=== PATIENT | female | born 1990 | race Caucasian/White ===

== ENCOUNTER 2022-01-27 16:34 | Outpatient (CLI) | payer BC, SELFPAY | END 2022-01-27 16:35 | disposition home or self-care (01) | LOC: BICRAD 16:34 | PROVIDERS: ATTEND Internal Medicine Hematology & Oncology | DX: R50.9 Fever, unspecified (principal); R06.02 Shortness of breath; F41.1 Generalized anxiety disorder | CPT/HCPCS: 71046 ==

== ENCOUNTER 2022-02-17 10:55 | Day surgery (SDC) | payer BC ==
[2022-02-17] MEDS ORDERED: Loperamide HCl 2 MG CAP PO PRN (11:59)
[2022-02-17] MEDS ORDERED: Loperamide HCl 2 MG CAP PO SCH (12:00)
[2022-02-17] MEDS ORDERED: Acetaminophen 500 MG TAB ONE ×2 (12:12→13:02)
[2022-02-17] MEDS ORDERED: diphenhydrAMINE 25 MG CAP ONE (12:12)
[2022-02-17] MEDS ORDERED: Acetaminophen 500 MG TAB PO SCH ×2 (12:15→13:30)
[2022-02-17] MEDS ORDERED: diphenhydrAMINE 25 MG CAP PO SCH (12:15)
[2022-02-17] MEDS ORDERED: Acetaminophen 500 MG TAB PO PRN (13:17)
[2022-02-17] MEDS ORDERED: Ibuprofen 200 MG TAB PO PRN (14:04)
[2022-02-17 18:43] VITALS: BP 90/44; TEMP 97.5
== END 2022-02-17 18:20 | disposition short-term general hospital (02) ==
LOC: ONC/OP 10:55
PROVIDERS: ATTEND Internal Medicine Hematology & Oncology
PROC: 30233R1 Transfusion of Nonautologous Platelets into Peripheral Vein, Percutaneous Approach (ICD-10-PCS; principal; 2022-02-17)
PROC: 30233N1 Transfusion of Nonautologous Red Blood Cells into Peripheral Vein, Percutaneous Approach (ICD-10-PCS; principal; 2022-02-17)
DX: D69.6 Thrombocytopenia, unspecified (principal); D64.9 Anemia, unspecified
CPT/HCPCS: 36430; 86850; 86900; 86901; 99212; G0463; P9016; P9035

== ENCOUNTER 2022-02-17 18:28 | Emergency (ER) | payer BC, SELFPAY ==
[2022-02-17 19:23] LABS: Hemoglobin 8.1 g/dL (12.0-16.0); Mean Corpuscular HGB CONC 32.3 g/dL (32.0-36.0); Mean Corpuscular Hemoglobin 29.8 pg (27.0-31.0); Mean Corpuscular Volume 92.1 fL (78.0-98.0); Mean Platelet Volume 11.2 fL (7.4-10.4); Platelet Count 36 thou/uL (130-400); RBC Distribution Width 14.9 % (11.5-14.5); White Blood Cell (WBC) Count 0.1 thou/uL (4.8-10.8)
[2022-02-17 19:39] LABS: INR-International Normal Ratio 1.5; PTT 34.2 sec (22.9-36.1); Prothrombin Time 18.4 sec (12.0-14.7)
[2022-02-17 19:42] LABS: ALT (SGPT) 25 U/L (8-55); AST (SGOT) 62 U/L (5-34); Alkaline Phosphatase 50 U/L (40-110); Anion Gap 29 mmol/L (10-20); BUN (Urea Nitrogen) 19 mg/dL (7.0-18.7); Bilirubin, Total 0.9 mg/dL (0.2-1.2); Calc. Creatinine Clearance 0 mL/min (70-130); Calcium 8.1 mg/dL (7.8-10.44); Carbon Dioxide 11 mmol/L (22-29); Chloride 92 mmol/L (98-107); Estimated GFR 39; Globulin 2.4 g/dL (2.4-3.5); Glucose 143 mg/dL (70-105); Potassium 4.8 mmol/L (3.5-5.1); Protein, Total 5.4 g/dL (6.0-8.3); Sodium 127 mmol/L (136-145)
[2022-02-17 20:14] LABS: CKMB 33.2 ng/mL (0-6.6)
[2022-02-17] MEDS ORDERED: NOREPINEPHRINE 8 MG/250 ML-D5W 250 ML ONE (20:15)
[2022-02-17] MEDS ORDERED: Calcium Gluc 4.6 MEQ/10 ML (100 MG/ML) ONE (20:35)
[2022-02-17] MEDS ORDERED: Calcium Chloride 1 GM/10 ML Abboject SYRINGE ONE ×2 (20:36→20:38)
[2022-02-17] MEDS ORDERED: CALCIUM GLUC 1GM/NS 50ML BAG ONE (20:36)
[2022-02-18 11:42] LABS: Reference Lab Name LABCORP
[2022-02-18 11:43] LABS: Ref Lab Test Ordered HLA A INT RESOLUTION
== END 2022-02-17 20:38 | disposition expired ==
LOC: ERS 18:28
DX: I46.9 Cardiac arrest, cause unspecified (principal); R65.21 Severe sepsis with septic shock; R09.2 Respiratory arrest; D70.9 Neutropenia, unspecified; C85.93 Non-Hodgkin lymphoma, unspecified, intra-abdominal lymph nodes
CPT/HCPCS: 31500; 71045; 80053; 82553; 83605; 83880; 84484; 85025; 85060; 85610; 85730; 86140; 87076; 87077; 87149; 92950; 93005; 94660; 94760; J0610